=== PATIENT | female | born 1985 | race Caucasian/White ===

== ENCOUNTER 2016-12-12 09:28 | Outpatient (CLI) | payer OTHER | END 2016-12-12 23:00 | LOC: LAB SRH 09:28 | DX: Z34.82 Encounter for supervision of other normal pregnancy, second trimester (principal) | CPT/HCPCS: 90039; 90074; 91004; 91162; 91163 ==

== ENCOUNTER 2016-12-14 11:19 | Outpatient (CLI) | payer OTHER | END 2016-12-14 23:00 | LOC: LAB SRH 11:19 | DX: Z34.82 Encounter for supervision of other normal pregnancy, second trimester (principal) | CPT/HCPCS: 90074; 92652 ==

== ENCOUNTER 2017-01-17 19:47 | Outpatient (CLI) | payer OTHER | END 2017-01-17 21:00 | disposition home or self-care (01) | LOC: OBC SRH 19:47 → OB SRH 19:50 → OBC SRH 21:00 | PROC: 4A0HXCZ Measurement of Products of Conception, Cardiac Rate, External Approach (ICD-10-PCS; principal; 2017-01-17) | DX: O36.8130 Decreased fetal movements, third trimester, not applicable or unspecified (principal); W01.0XXA Fall on same level from slipping, tripping and stumbling without subsequent striking against object, initial encounter; Z3A.34 34 weeks gestation of pregnancy ==

== ENCOUNTER 2017-02-10 19:03 | Outpatient (CLI) | payer OTHER | END 2017-02-10 20:45 | disposition home or self-care (01) | LOC: OBC SRH 19:03 → OB SRH 19:04 → OBC SRH 20:45 | PROC: 4A0HXCZ Measurement of Products of Conception, Cardiac Rate, External Approach (ICD-10-PCS; principal; 2017-02-10) | DX: O47.1 False labor at or after 37 completed weeks of gestation (principal); O24.419 Gestational diabetes mellitus in pregnancy, unspecified control; Z3A.37 37 weeks gestation of pregnancy ==

== ENCOUNTER 2017-02-13 06:50 | Inpatient (IN) | payer OTHER ==
[2017-02-13] VITALS (7 sets, daily range): BP systolic 90–112; BP diastolic 50–74
[~2017-02-13] VITALS: Ht 152.4 cm; Wt 57.6 kg
[2017-02-14 00:15] VITALS: BP 98/57
[2017-02-14 08:44] VITALS: BP 91/52
--- NOTE | 2017-02-14 16:15 | Provider's Discharge Care Plan ---
Problem, Goal, Plan Problem List 1. Vaginal delivery Goals: Improve disease control Instructions: Follow up as needed
--- NOTE | 2017-02-14 16:15 | Provider's Discharge Care Plan ---
Problem, Goal, Plan Problem List 1. Vaginal delivery Goals: Improve disease control Instructions: Follow up as needed
== END 2017-02-14 19:15 | disposition home or self-care (01) | DRG 560 ==
LOC: OB SRH 06:50
PROVIDERS: ADMIT Obstetrics & Gynecology
PROC: 10E0XZZ Delivery of Products of Conception, External Approach (ICD-10-PCS; principal; 2017-02-13)
PROC: 3E033VJ Introduction of Other Hormone into Peripheral Vein, Percutaneous Approach (ICD-10-PCS; 2017-02-13)
PROC: 10907ZC Drainage of Amniotic Fluid, Therapeutic from Products of Conception, Via Natural or Artificial Opening (ICD-10-PCS; 2017-02-13)
PROC: 3E0234Z Introduction of Serum, Toxoid and Vaccine into Muscle, Percutaneous Approach (ICD-10-PCS; 2017-02-14)
DX: O24.420 Gestational diabetes mellitus in childbirth, diet controlled (principal); Z37.0 Single live birth; O69.1XX0 Labor and delivery complicated by cord around neck, with compression, not applicable or unspecified; Z3A.38 38 weeks gestation of pregnancy; O26.23 Pregnancy care for patient with recurrent pregnancy loss, third trimester; O26.893 Other specified pregnancy related conditions, third trimester; Z67.11 Type A blood, Rh negative
CPT/HCPCS: 40012; 40021; 83501; 90004; 90074; 90469; 91162; 91163; 92760; 92761; 92762; 92763; 92764; 92765; 92766; 92767; 95059